=== PATIENT | female | born 1980 ===

== ENCOUNTER → 2016-09-19 | Outpatient (REF) ==
[2016-09-19 08:50] LABS: PROTHROMBIN TIME 11.2 SECONDS (9.7-12.8)
[2016-09-19 08:51] LABS: PH 6 (5-8); URINE APPEARANCE Clear; URINE BILIRUBIN Negative (NEGATIVE); URINE BLOOD Negative (NEGATIVE); URINE COLOR Yellow; URINE GLUCOSE Negative (NEGATIVE); URINE KETONE Negative (NEGATIVE); URINE UROBILINOGEN Negative (NEGATIVE)
[2016-09-19 09:29] LABS: SQUAMOUS EPITHELIAL 0-2 /hpf; URINE BACTERIA Rare /hpf; URINE WBC 0-2 /hpf
[2016-09-19 09:34] LABS: URINE RBC None Seen /hpf
== END ==
LOC: ZMSC 08:36
DX: Z01.89 Encounter for other specified special examinations (principal)